=== PATIENT | male | born 1995 | race Caucasian/White ===

== ENCOUNTER 2022-05-12 13:14 | Emergency (ER) | payer SELFPAY ==
[2022-05-12] MEDS ORDERED: Ketorolac Tromethamine 30 MG/ML VIAL ONE (14:44)
== END 2022-05-12 16:01 | disposition home or self-care (01) ==
LOC: CSHERS 13:14
DX: S30.0XXA Contusion of lower back and pelvis, initial encounter (principal); M79.672 Pain in left foot; M79.671 Pain in right foot; F17.210 Nicotine dependence, cigarettes, uncomplicated; W17.89XA Other fall from one level to another, initial encounter
CPT/HCPCS: 72170; 96372; J1885